=== PATIENT | female | born 2000 | race Caucasian/White ===

== ENCOUNTER 2019-07-15 16:28 | Observation (INO) | payer OTHER ==
[~2019-07-15] VITALS: Ht 162.6 cm; Wt 62.6 kg
== END 2019-07-15 17:00 | disposition home or self-care (01) ==
LOC: INTOOBSV 16:28 → SPU 16:28
PROVIDERS: ADMIT Obstetrics & Gynecology; ATTEND Obstetrics & Gynecology
DX: O26.853 Spotting complicating pregnancy, third trimester (principal); Z3A.34 34 weeks gestation of pregnancy
CPT/HCPCS: 81002; G0378